=== PATIENT | male | born 1975 | race Caucasian/White ===

== ENCOUNTER 2016-08-01 13:10 | Emergency (ER) | payer MEDICAID, OTHER ==
[~2016-08-01 13:10] MED LIST: /QUET10TA OR; LORA2TAB OR; MINI2CAP OR; NICO21DI4 TD; SERO200T OR; TRAZ50TA OR
[2016-08-01] MEDS ORDERED: NORCO, ANEXSIA 5/325MG TABLET (HYDROcodone/ACETAMINOPHEN) As Ordered ONE (13:37)
[2016-08-01] MEDS ORDERED: AMOXICILLIN 250 MG CAP As Ordered ONE (13:37)
--- NOTE | 2016-08-01 13:44 | EDDOCDS ---
Nurse's Notes [facility] Name: Gallo Nicole Age: 41 yrs Sex: Male : 1975 Arrival Date: 08/01/2016 Time: 13:10 Bed TR3 Private MD: Pro Camarena Diagnosis: Atypical facial pain-dental abscess Presentation: 08/01 13:14 Presenting complaint: Patient states: right upper jaw pain and swelling began jjr yesterday. Adult Sepsis Screening: The patient does not have new or worsening altered mentation. Patient's respiratory rate is less than 22. Systolic blood pressure is greater than 100. Patient has a qSOFA score of 0- Negative Sepsis Screen. Suicide/Homicide risk assessment- the patient denies having any suicidal and/or homicidal ideations and does not present with any other emotional, behavioral or mental health complaints. Status: Patient is not a travel service consultant or dependent. Transition of care: patient was not received from another setting of care. 13:14 Acuity: JULEE Level 4 jjr 13:14 Method Of Arrival: Walkin/Carried/Asstd jjr Triage Assessment: 13:15 General: Appears in no apparent distress. Pain: Location: right jaw. HIV screening NA jjr for this visit Offered previously. EENT: Reports pain in right jaw. Historical: - Allergies: no known allergies; - Home Meds: 1. ibuprofen 800 mg Oral tab (Last dose: 08/01/2016 10:00) - PMHx: none; - PSHx: Hernia repair; - Social history: Smoking status: Patient uses tobacco products, current every day smoker. No barriers to communication noted, The patient speaks fluent Kazakh. - : The pt / caregiver states he / she is not on anticoagulants. Home medication list is obtained from the patient. - Exposure Risk Screening:: None identified. Screenin:42 Screening information is obtained from the patient. Fall risk: No risks identified. jjr Assistance ADL's: requires no assistance with activities of daily living. Abuse/DV Screen: The patient / caregiver reports he/she is: not in a situation that causes fear, pain or injury. Nutritional screening: No deficits noted. Advance Directives: There is no active DNR order. home support is adequate. Assessment: 13:41 General: Appears in no apparent distress, well nourished, well groomed, Behavior is jjr appropriate for age. Pain: Location: right jaw. Respiratory: No deficits noted. Derm: Swollen area noted on right jaw. Vital Signs: 13:11 BP 117 / 70; Pulse 94; Resp 18; Temp 96.9(O); Pulse Ox 97% on R/A; Weight 74.84 kg (R); elp Height 5 ft. 10 in. (177.80 cm) (R); Pain 8/10; 13:11 Body Mass Index 23.67 (74.84 kg, 177.80 cm) el Vitals: 13:11 Log In Time: August 01, 2016 at 13:09. elp ED Course: 13:11 Patient visited by Leela Palma PCA. elp 13:11 Pro Camarena MD is Private Physician. elp 13:11 Patient moved to Waiting elp 13:12 Patient moved to Pre RCE elp 13:14 Triage Initiated jjr 13:27 Patient moved to Triage 1 ct3 13:30 [facility] cc[facility] 13:30 Tiffani Camarillo MD is Attending Physician. cc10 13:30 Patient visited by Jaylon Restrepo PA-C. cc10 13:30 Patient visited by Jaylon Restrepo PA-C. cc10 13:34 Gian Contreras is Referral Physician. cc10 13:41 Patient moved to TR3 jjr 13:42 No IV's were initiated during this patient's visit. No procedures done that require jjr assistance. 13:43 Patient visited by Brittanie Begum RN. jjr 13:43 The patient / caregiver is instructed regarding the plan of care and ED course. jjr Administered Medications: 13:41 Drug: Amoxicillin 500 mg [amoxicillin 250 mg capsule (2 caps)] Route: PO; jjr 13:41 Drug: HYDROcodone-acetaminophen 2 tabs [hydrocodone 5 mg-acetaminophen 325 mg tablet (2 jjr tabs)] Route: PO; Order Results: There are currently no results for this order. Outcome: 13:35 Discharge ordered by Provider. cc10 13:42 Discharge Assessment: patient administered narcotics - yes. Pt provided with safe jjr discharge. The following High Risk Discharge criteria are identified: None. Discharged to home ambulatory. Condition: stable. Discharge instructions given to patient, Instructed on discharge instructions, follow up and referral plans. medication usage, Demonstrated understanding of instructions, medications, Prescriptions given X 3. No special radiology studies were completed. Property sent home with patient. 13:43 Patient left the ED. alis Signatures: Brittanie Begum RN RN Susie Holcomb, STOPPERER ASSEMBLER STOPPERER ASSEMBLER ct3 Leela Palma, STOPPERER ASSEMBLER STOPPERER ASSEMBLER elp Jaylon Restrepo, PAStephyC PAStephyC cc10 Corrections: (The following items were deleted from the chart) 13:12 13:11 Pulse 94bpm; Resp 18bpm; Pulse Ox 97% RA; Temp 96.9F Oral; 74.84 kg Reported; elp Height 5 ft. 10 in. Reported; BMI: 23.6; Pain 8/10; elp MTDD
--- NOTE | 2016-08-01 13:44 | EDDOCDS ---
Physician Documentation [facility] Name: Gallo Nicole Age: 41 yrs Sex: Male : 1975 Arrival Date: 08/01/2016 Time: 13:10 Bed TR3 Private MD: Pro Camarena Disposition: 08/01/16 13:35 Discharged to Home/Self Care. Impression: Atypical facial pain - dental abscess. - Condition is Stable. - Discharge Instructions: Dental Pain. - Prescriptions for Amoxicillin 500 mg Oral Capsule - take 1 capsule by ORAL route every 8 hours for 10 days; 30 tablet. Naprosyn 500 mg Oral Tablet - take 1 tablet by ORAL route 2 times per day take with food; 30 tablet. Hydrocodone- Acetaminophen 5-325 mg Oral Tablet - take 1 tablet by ORAL route every 6 hours As needed MDD: 4 tabs; 16 tablet. - Medication Reconciliation, Local Pharmacy Hours form. - Follow up: Your, Dentist; When: Call to arrange an appointment; Reason: Wound/Symptom Recheck, Recheck today's complaints, Worsening of conditions, Continuance of care. - Problem is an acute exacerbation. - Symptoms are unchanged. Historical: - Allergies: no known allergies; - Home Meds: 1. ibuprofen 800 mg Oral tab (Last dose: 08/01/2016 10:00) - PMHx: none; - PSHx: Hernia repair; - Social history: Smoking status: Patient uses tobacco products, current every day smoker. No barriers to communication noted, The patient speaks fluent Turkish. - : The pt / caregiver states he / she is not on anticoagulants. Home medication list is obtained from the patient. - Exposure Risk Screening:: None identified. Vital Signs: 08/01 13:11 BP 117 / 70; Pulse 94; Resp 18; Temp 96.9(O); Pulse Ox 97% on R/A; Weight 74.84 kg / elp 164.99 lbs (R); Height 5 ft. 10 in. (177.80 cm) (R); Pain 8/10; 13:11 Body Mass Index 23.67 (74.84 kg, 177.80 cm) elp MDM: 13:34 Amoxicillin 500 mg PO once ordered. cc10 13:34 HYDROcodone-acetaminophen 5 mg-325 mg 2 tabs PO once ordered. cc10 Administered Medications: 13:41 Drug: Amoxicillin 500 mg [amoxicillin 250 mg capsule (2 caps)] Route: PO; jjr 13:41 Drug: HYDROcodone-acetaminophen 2 tabs [hydrocodone 5 mg-acetaminophen 325 mg tablet (2 jjr tabs)] Route: PO; Signatures: Brittanie Begum, RN RN jjr Jaylon Restrepo PA-C PA-C cc10 MTDD
--- NOTE | 2016-08-03 14:44 | EDDOCDS ---
Nurse's Notes [facility] Name: Gallo Nicole Age: 41 yrs Sex: Male : 1975 Arrival Date: 08/01/2016 Time: 13:10 Bed TR3 Private MD: Pro Camarena Diagnosis: Atypical facial pain-dental abscess Presentation: 08/01 13:14 Presenting complaint: Patient states: right upper jaw pain and swelling began jjr yesterday. Adult Sepsis Screening: The patient does not have new or worsening altered mentation. Patient's respiratory rate is less than 22. Systolic blood pressure is greater than 100. Patient has a qSOFA score of 0- Negative Sepsis Screen. Suicide/Homicide risk assessment- the patient denies having any suicidal and/or homicidal ideations and does not present with any other emotional, behavioral or mental health complaints. Status: Patient is not a auto servicer or dependent. Transition of care: patient was not received from another setting of care. 13:14 Acuity: JULEE Level 4 jjr 13:14 Method Of Arrival: Walkin/Carried/Asstd jjr Triage Assessment: 13:15 General: Appears in no apparent distress. Pain: Location: right jaw. HIV screening NA jjr for this visit Offered previously. EENT: Reports pain in right jaw. Historical: - Allergies: no known allergies; - Home Meds: 1. ibuprofen 800 mg Oral tab (Last dose: 08/01/2016 10:00) - PMHx: none; - PSHx: Hernia repair; - Social history: Smoking status: Patient uses tobacco products, current every day smoker. No barriers to communication noted, The patient speaks fluent Yi. - : The pt / caregiver states he / she is not on anticoagulants. Home medication list is obtained from the patient. - Exposure Risk Screening:: None identified. Screenin:42 Screening information is obtained from the patient. Fall risk: No risks identified. jjr Assistance ADL's: requires no assistance with activities of daily living. Abuse/DV Screen: The patient / caregiver reports he/she is: not in a situation that causes fear, pain or injury. Nutritional screening: No deficits noted. Advance Directives: There is no active DNR order. home support is adequate. Assessment: 13:41 General: Appears in no apparent distress, well nourished, well groomed, Behavior is jjr appropriate for age. Pain: Location: right jaw. Respiratory: No deficits noted. Derm: Swollen area noted on right jaw. Vital Signs: 13:11 BP 117 / 70; Pulse 94; Resp 18; Temp 96.9(O); Pulse Ox 97% on R/A; Weight 74.84 kg (R); elp Height 5 ft. 10 in. (177.80 cm) (R); Pain 8/10; 13:11 Body Mass Index 23.67 (74.84 kg, 177.80 cm) el Vitals: 13:11 Log In Time: August 01, 2016 at 13:09. elp ED Course: 13:11 Patient visited by Leela Palma PCA. elp 13:11 Pro Camarena MD is Private Physician. elp 13:11 Patient moved to Waiting elp 13:12 Patient moved to Pre RCE elp 13:14 Triage Initiated jjr 13:27 Patient moved to Triage 1 ct3 13:30 [facility]lon Restrepo [facility] cc[facility] 13:30 Tiffani Camarillo MD is Attending Physician. cc10 13:30 Patient visited by Jaylon Restrepo PA-C. cc10 13:30 Patient visited by Jaylon Restrepo PA-C. cc10 13:34 Gian Contreras is Referral Physician. cc10 13:41 Patient moved to TR3 jjr 13:42 No IV's were initiated during this patient's visit. No procedures done that require jjr assistance. 13:43 Patient visited by Brittanie Begum RN. jjr 13:43 The patient / caregiver is instructed regarding the plan of care and ED course. jjr 14:19 [place] Payment Agreement was scanned into [employer] and attached to record. lg 16:55 T-Sheet-- Draft Copy was scanned into [employer] and attached to record. klr Administered Medications: 13:41 Drug: Amoxicillin 500 mg [amoxicillin 250 mg capsule (2 caps)] Route: PO; jjr 13:41 Drug: HYDROcodone-acetaminophen 2 tabs [hydrocodone 5 mg-acetaminophen 325 mg tablet (2 jjr tabs)] Route: PO; Order Results: There are currently no results for this order. Outcome: 13:35 Discharge ordered by Provider. cc10 13:42 Discharge Assessment: patient administered narcotics - yes. Pt provided with safe jjr discharge. The following High Risk Discharge criteria are identified: None. Discharged to home ambulatory. Condition: stable. Discharge instructions given to patient, Instructed on discharge instructions, follow up and referral plans. medication usage, Demonstrated understanding of instructions, medications, Prescriptions given X 3. No special radiology studies were completed. Property sent home with patient. 13:43 Patient left the ED. jjr Signatures: José Luis Goldsmith, Reg Reg lg Brittanie Begum, RN RN jjr Susie Ash, PEAT SHREDDER TENDER PEAT SHREDDER TENDER ct3 Patchen, Leela, PEAT SHREDDER TENDER PEAT SHREDDER TENDER elp Jaylon Restrepo, PAStephyC PA-C cc10 Edith Phan Corrections: (The following items were deleted from the chart) 13:12 13:11 Pulse 94bpm; Resp 18bpm; Pulse Ox 97% RA; Temp 96.9F Oral; 74.84 kg Reported; elp Height 5 ft. 10 in. Reported; BMI: 23.6; Pain 8/10; elp Chart Complete MTDD
--- NOTE | 2016-08-03 14:44 | EDDOCDS ---
Physician Documentation [facility] Name: Gallo Nicole Age: 41 yrs Sex: Male : 1975 Arrival Date: 08/01/2016 Time: 13:10 Bed TR3 Private MD: Pro Camarena Disposition: 08/01/16 13:35 Discharged to Home/Self Care. Impression: Atypical facial pain - dental abscess. - Condition is Stable. - Discharge Instructions: Dental Pain. - Prescriptions for Amoxicillin 500 mg Oral Capsule - take 1 capsule by ORAL route every 8 hours for 10 days; 30 tablet. Naprosyn 500 mg Oral Tablet - take 1 tablet by ORAL route 2 times per day take with food; 30 tablet. Hydrocodone- Acetaminophen 5-325 mg Oral Tablet - take 1 tablet by ORAL route every 6 hours As needed MDD: 4 tabs; 16 tablet. - Medication Reconciliation, Local Pharmacy Hours form. - Follow up: Your, Dentist; When: Call to arrange an appointment; Reason: Wound/Symptom Recheck, Recheck today's complaints, Worsening of conditions, Continuance of care. - Problem is an acute exacerbation. - Symptoms are unchanged. Historical: - Allergies: no known allergies; - Home Meds: 1. ibuprofen 800 mg Oral tab (Last dose: 08/01/2016 10:00) - PMHx: none; - PSHx: Hernia repair; - Social history: Smoking status: Patient uses tobacco products, current every day smoker. No barriers to communication noted, The patient speaks fluent Mongolian. - : The pt / caregiver states he / she is not on anticoagulants. Home medication list is obtained from the patient. - Exposure Risk Screening:: None identified. Vital Signs: 08/01 13:11 BP 117 / 70; Pulse 94; Resp 18; Temp 96.9(O); Pulse Ox 97% on R/A; Weight 74.84 kg / elp 164.99 lbs (R); Height 5 ft. 10 in. (177.80 cm) (R); Pain 8/10; 13:11 Body Mass Index 23.67 (74.84 kg, 177.80 cm) elp MDM: 13:34 Amoxicillin 500 mg PO once ordered. cc10 13:34 HYDROcodone-acetaminophen 5 mg-325 mg 2 tabs PO once ordered. cc10 14:19 [place] Payment Agreement was scanned into [employer] and attached to record. lg 16:55 T-Sheet-- Draft Copy was scanned into [employer] and attached to record. klr Administered Medications: 13:41 Drug: Amoxicillin 500 mg [amoxicillin 250 mg capsule (2 caps)] Route: PO; jjr 13:41 Drug: HYDROcodone-acetaminophen 2 tabs [hydrocodone 5 mg-acetaminophen 325 mg tablet (2 jjr tabs)] Route: PO; Signatures: José Luis Goldsmith, Alexandre Schroeder Brittanie Begum RN RN jjr Jaylon Restrepo, SUMEETC PA-C cc10 Edith Phan The chart was reviewed and I authenticate all verbal orders and agree with the evaluation and treatment provided.Attachments: 14:19 [facility] Payment Agreement lg 16:55 T-Sheet-- Draft Copy klr Chart Complete MTDD
--- NOTE | 2016-08-03 14:44 | EDDOCDS ---
Physician Documentation [facility] Name: Gallo Nicole Age: 41 yrs Sex: Male : 1975 Arrival Date: 08/01/2016 Time: 13:10 Bed TR3 Private MD: Pro Camarena Disposition: 08/01/16 13:35 Discharged to Home/Self Care. Impression: Atypical facial pain - dental abscess. - Condition is Stable. - Discharge Instructions: Dental Pain. - Prescriptions for Amoxicillin 500 mg Oral Capsule - take 1 capsule by ORAL route every 8 hours for 10 days; 30 tablet. Naprosyn 500 mg Oral Tablet - take 1 tablet by ORAL route 2 times per day take with food; 30 tablet. Hydrocodone- Acetaminophen 5-325 mg Oral Tablet - take 1 tablet by ORAL route every 6 hours As needed MDD: 4 tabs; 16 tablet. - Medication Reconciliation, Local Pharmacy Hours form. - Follow up: Your, Dentist; When: Call to arrange an appointment; Reason: Wound/Symptom Recheck, Recheck today's complaints, Worsening of conditions, Continuance of care. - Problem is an acute exacerbation. - Symptoms are unchanged. Historical: - Allergies: no known allergies; - Home Meds: 1. ibuprofen 800 mg Oral tab (Last dose: 08/01/2016 10:00) - PMHx: none; - PSHx: Hernia repair; - Social history: Smoking status: Patient uses tobacco products, current every day smoker. No barriers to communication noted, The patient speaks fluent Macedonian. - : The pt / caregiver states he / she is not on anticoagulants. Home medication list is obtained from the patient. - Exposure Risk Screening:: None identified. Vital Signs: 08/01 13:11 BP 117 / 70; Pulse 94; Resp 18; Temp 96.9(O); Pulse Ox 97% on R/A; Weight 74.84 kg / elp 164.99 lbs (R); Height 5 ft. 10 in. (177.80 cm) (R); Pain 8/10; 13:11 Body Mass Index 23.67 (74.84 kg, 177.80 cm) elp MDM: 13:34 Amoxicillin 500 mg PO once ordered. cc10 13:34 HYDROcodone-acetaminophen 5 mg-325 mg 2 tabs PO once ordered. cc10 14:19 [facility] [place] Agreement was scanned into [employer] and attached to record. lg 16:55 T-Sheet-- Draft Copy was scanned into [employer] and attached to record. klr Administered Medications: 13:41 Drug: Amoxicillin 500 mg [amoxicillin 250 mg capsule (2 caps)] Route: PO; jjr 13:41 Drug: HYDROcodone-acetaminophen 2 tabs [hydrocodone 5 mg-acetaminophen 325 mg tablet (2 jjr tabs)] Route: PO; Signatures: José Luis Goldsmith, Alexandre Schroeder Brittanie Begum RN RN jjr Jaylon Restrepo, SUMEETC PA-C cc10 Edith Phan The chart was reviewed and I authenticate all verbal orders and agree with the evaluation and treatment provided.Attachments: 14:19 [facility] Payment Agreement lg 16:55 T-Sheet-- Draft Copy klr Chart Complete MTDD
== END 2016-08-01 13:43 | disposition home or self-care (01) ==
LOC: M ED 13:10
DX: K04.7 Periapical abscess without sinus (principal); G50.1 Atypical facial pain; F17.200 Nicotine dependence, unspecified, uncomplicated

== ENCOUNTER 2016-12-06 00:15 | Emergency (ER) | payer MEDICAID, OTHER ==
[2016-12-06 00:28] VITALS: BP 153/93
== END 2016-12-06 00:44 | disposition home or self-care (01) ==
LOC: M ED 00:42
DX: F10.120 Alcohol abuse with intoxication, uncomplicated (principal); F91.9 Conduct disorder, unspecified; F43.29 Adjustment disorder with other symptoms; F17.200 Nicotine dependence, unspecified, uncomplicated

== ENCOUNTER 2016-12-06 17:31 | Emergency (ER) | payer OTHER ==
[~2016-12-06] VITALS: Ht 175.3 cm; Wt 72.6 kg
[2016-12-06 17:32] VITALS: BP 133/77
== END 2016-12-06 18:31 | disposition left against medical advice (07) ==
LOC: M ED 18:26
DX: S69.90XA Unspecified injury of unspecified wrist, hand and finger(s), initial encounter (principal); Z53.21 Procedure and treatment not carried out due to patient leaving prior to being seen by health care provider

== ENCOUNTER 2017-02-11 08:11 | Emergency (ER) | payer OTHER ==
[2017-02-11 08:27] VITALS: BP 136/80
[2017-02-11] MEDS ORDERED: FLUORESCEIN OPHTH 1 MG STRIP As Ordered ONE (09:08)
[2017-02-11] MEDS ORDERED: PROPARACAINE 0.5% OPHTH SOL 15ML OU ONE (09:15)
[2017-02-11] MEDS ORDERED: OFLO0.3D57 OD (09:27)
[2017-02-11] MEDS ORDERED: ADACEL/BOOSTRIX VACCINE (DIPHTH/PERTUSS/ACELL/TETANUS)0.5ML SYR (90715) IM ONE (09:30)
== END 2017-02-11 10:01 | disposition home or self-care (01) ==
LOC: M ED 08:11
DX: S05.02XA Injury of conjunctiva and corneal abrasion without foreign body, left eye, initial encounter (principal); X58.XXXA Exposure to other specified factors, initial encounter; Y92.9 Unspecified place or not applicable; Y99.9 Unspecified external cause status; Y93.9 Activity, unspecified; Z23 Encounter for immunization

== ENCOUNTER 2017-02-16 08:00 | Emergency (ER) | payer OTHER ==
[~2017-02-16] VITALS: Ht 175.3 cm; Wt 77.2 kg
[~2017-02-16 08:00] MED LIST changes: +OFLO0.3D57 OD
[2017-02-16] MEDS: NORCO, ANEXSIA 5/325MG TABLET (HYDROcodone/ACETAMINOPHEN) PO ONE (10:15)
[2017-02-16] MEDS: FLUORESCEIN OPHTH 1 MG STRIP OS ONE (10:15)
[2017-02-16] MEDS ORDERED: DICL75TA PO (10:31)
[2017-02-16 10:38] VITALS: BP 116/70
== END 2017-02-16 10:39 | disposition home or self-care (01) ==
LOC: M ED 08:00
DX: S05.02XA Injury of conjunctiva and corneal abrasion without foreign body, left eye, initial encounter (principal); R51 Headache; G89.29 Other chronic pain; F17.210 Nicotine dependence, cigarettes, uncomplicated; W22.8XXA Striking against or struck by other objects, initial encounter; Y92.89 Other specified places as the place of occurrence of the external cause; Y99.9 Unspecified external cause status; Y93.9 Activity, unspecified

== ENCOUNTER 2017-07-16 12:54 | Emergency (ER) | payer OTHER ==
[2017-07-16] MEDS: ONDANSETRON 4MG/2ML VIAL (J2405) IV (13:35)
[2017-07-16] MEDS: KETOROLAC 30 MG/ML VIAL (J1885) IV (13:35)
[2017-07-16] MEDS: NS 1,000 ML IV (13:35)
[2017-07-16 13:40] LABS: BASO % 0.5 % (0.0-1.0); EOS # 0.1 10^3/uL (0.0-0.50); EOS % 1.3 % (0.0-3.0); HEMOGLOBIN 14.4 g/dl (14.0-18.0); IMMATURE GRANULOCYTE % 0.5 % (0-0); LYMPH # 1.9 10^3/uL (1.5-4.5); LYMPH % 30.2 % (24.0-44.0); MEAN CORPUSCULAR HEMOGLOBIN 32.6 pg (27.0-33.0); MEAN CORPUSCULAR HGB CONC 35.1 g/dl (32.0-36.5); MEAN CORPUSCULAR VOLUME 92.8 fl (80.0-96.0); MONO # 0.7 10^3/uL (0.0-0.8); MONO % 11.7 % (0.0-5.0); NEUTROPHILS # 3.5 10^3/uL (1.8-7.7); NEUTROPHILS % 55.8 % (36.0-66.0); PLATELET COUNT, AUTOMATED 224 10^3/uL (150-450); RED BLOOD COUNT 4.42 10^6/uL (4.30-6.10); RED CELL DISTRIBUTION WIDTH 12.1 % (11.5-14.5); WHITE BLOOD COUNT 6.3 10^3/uL (4.0-10.0)
[2017-07-16 13:43] LABS: KETONE, URINE AUTO RFX NEGATIVE (NEGATIVE); LEUKOCYTE ESTERASE UR AUTO RFX NEGATIVE (NEGATIVE); NITRITE, URINE AUTO RFX NEGATIVE (NEGATIVE); RBC, URINE AUTO RFX 1 /HPF (0-3); SPECIFIC GRAVITY UR AUTO RFX 1.003 (1.002-1.035); SQUAM EPITHELIAL CELL UR AURFX 0 /HPF (0-6); WBC, URINE AUTO RFX 0 /HPF (0-3)
[2017-07-16 13:58] LABS: ALBUMIN 4.4 GM/DL (3.2-5.2); ALBUMIN/GLOBULIN RATIO 1.33 (1.00-1.93); ALKALINE PHOSPHATASE 61 U/L (45-117); ALT/SGPT 19 U/L (12-78); ANION GAP 7 MEQ/L (8-16); AST/SGOT 21 U/L (7-37); BILIRUBIN,DIRECT 0.2 MG/DL (0.0-0.2); BILIRUBIN,TOTAL 0.9 MG/DL (0.2-1.0); BLOOD UREA NITROGEN 10 MG/DL (7-18); CALCIUM LEVEL 9.2 MG/DL (8.5-10.1); CARBON DIOXIDE LEVEL 27 MEQ/L (21-32); CHLORIDE LEVEL 103 MEQ/L (98-107); CREATININE FOR GFR 0.99 MG/DL (0.70-1.30); GLOMERULAR FILTRATION RATE > 60.0 (>60); GLUCOSE, FASTING 90 MG/DL (70-105); POTASSIUM SERUM 4.2 MEQ/L (3.5-5.1); SODIUM LEVEL 137 MEQ/L (136-145); TOTAL PROTEIN 7.7 GM/DL (6.4-8.2)
[2017-07-16] MEDS: METHOCARBAMOL 500 MG TAB PO (15:03)
[2017-07-16] MEDS: NORCO, ANEXSIA 5/325MG TABLET (HYDROcodone/ACETAMINOPHEN) PO (15:03)
== END 2017-07-16 15:08 | disposition home or self-care (01) ==
LOC: M ED 12:54
DX: S39.001A Unspecified injury of muscle, fascia and tendon of abdomen, initial encounter (principal); X58.XXXA Exposure to other specified factors, initial encounter; Y92.89 Other specified places as the place of occurrence of the external cause; Y93.89 Activity, other specified; Y99.8 Other external cause status; N20.0 Calculus of kidney; N18.9 Chronic kidney disease, unspecified; F17.210 Nicotine dependence, cigarettes, uncomplicated; Z87.442 Personal history of urinary calculi; Z98.890 Other specified postprocedural states
CPT/HCPCS: J2405

== ENCOUNTER 2021-04-21 10:05 | Emergency (ER) | payer MEDICAID, OTHER ==
[~2021-04-21] VITALS: Ht 175.3 cm; Wt 75.4 kg
[~2021-04-21 10:05] MED LIST changes: -/QUET10TA OR; +AUGM875T28 PO; +DICL75TA PO; +HYDR-3715 PO; +IBUP80TA PO; +ROBA500T PO; +SERO1TAB OR
[2021-04-21] MEDS ORDERED: NS 1,000 ML IV ONE (12:45)
[2021-04-21] MEDS ORDERED: ACETAMINOPHEN 500 MG TAB PO ONE (12:45)
[2021-04-21 12:51] LABS: BASO % 0.4 % (0.0-1.0); EOS # 0.1 10^3/uL (0.0-0.5); EOS % 0.9 % (0.0-3.0); HEMATOCRIT 42.9 % (42.0-52.0); HEMOGLOBIN 14.4 g/dl (13.5-17.5); LYMPH # 1.5 10^3/uL (1.5-5.0); LYMPH % 18.6 % (24.0-44.0); MEAN CORPUSCULAR HEMOGLOBIN 31.9 pg (27.0-33.0); MEAN CORPUSCULAR HGB CONC 33.6 g/dl (32.0-36.5); MEAN CORPUSCULAR VOLUME 95.1 fl (80.0-96.0); MONO # 0.6 10^3/uL (0.0-0.8); MONO % 6.9 % (2.0-8.0); NEUTROPHILS # 5.8 10^3/uL (1.5-8.5); NEUTROPHILS % 72.9 % (36.0-66.0); PLATELET COUNT, AUTOMATED 283 10^3/uL (150-450); RED BLOOD COUNT 4.51 10^6/uL (4.30-6.10)
[2021-04-21 13:17] LABS: INR 0.9; PROTHROMBIN TIME 12.6 SECONDS (12.7-14.5)
[2021-04-21 13:18] LABS: PARTIAL THROMBOPLASTIN TIME 28.8 SECONDS (25.9-37.0)
[2021-04-21] MEDS: GASTROGRAFIN SOLUTION 30ML PO SCH ×2 (13:22→14:16)
[2021-04-21 13:24] LABS: ALBUMIN 3.9 GM/DL (3.2-5.2); ALT/SGPT 16 U/L (12-78); BILIRUBIN,DIRECT 0.1 MG/DL (0.0-0.2); BILIRUBIN,TOTAL 0.3 MG/DL (0.2-1.0); C REACTIVE PROTEIN QUANTITATIV < 0.30 MG/DL (0.00-0.30); LIPASE 65 U/L (73-393); TOTAL PROTEIN 7.4 GM/DL (6.4-8.2)
[2021-04-21 13:34] LABS: ERYTHROCYTE SEDIMENTATION RATE 9 mm/hr (0-15)
[2021-04-21] MEDS ORDERED: ISOVUE-370 76% 100ML VIAL As Ordered ONE (14:51)
--- NOTE | 2021-04-21 15:37 | REP ---
INDICATION: hematochezia, davide blood, abd pain, r/o UC. COMPARISON: 07/16/2017 the only prior noncontrast enhanced stone protocol CT TECHNIQUE: Standard helical technique after the intravenous administration of 100 cc Isovue 370 and oral bowel preparatory contrast administration FINDINGS: Bilateral dependent atelectatic changes are seen in lung bases. The liver, gallbladder, spleen, pancreas, adrenal glands, and kidneys are within normal limits. The abdominal aorta and para-aortic regions are within normal limits. Multiple poorly contrast opacified small bowel loops have thickened acuna. Moderate stool is seen throughout the colon. The colon is noncontrast opacified. There is no evidence of pericolonic fatty infiltration. There is no evidence of free fluid or free air. There is no evidence of a mass or adenopathy. Urinary bladder is distended. Bone window technique throughout the examination shows spinal degenerative changes. IMPRESSION: 1. Multiple small bowel loops with thickened acuna as described above suggesting enteritis. 2. Urinary bladder is distended. 3. Other findings as described above. <Electronically signed by Jake Parks > 04/21/21 0402
[2021-04-21] MEDS ORDERED: PRED20TA PO (16:07)
[2021-04-21 16:08] VITALS: BP 114/76
== END 2021-04-21 16:10 | disposition home or self-care (01) ==
LOC: M ED 10:05
DX: K62.5 Hemorrhage of anus and rectum (principal); R10.84 Generalized abdominal pain
CPT/HCPCS: 36415; 74177; 80047; 80076; 83690; 85025; 85610; 85652; 85730; 86140; 86850; 86900; 86901; 96360; 96361; 99284; Q9963; Q9967

== ENCOUNTER 2021-08-21 10:34 | Emergency (ER) | payer OTHER, MEDICAID ==
[~2021-08-21] VITALS: Ht 175.3 cm; Wt 69.4 kg
[~2021-08-21 10:34] MED LIST changes: +INCR1INH INH; +PRED20TA PO
[2021-08-21 10:35] VITALS: BP 140/75
[2021-08-21] MEDS ORDERED: IBUPROFEN 800 MG TAB PO ONE (12:15)
== END 2021-08-21 12:29 | disposition home or self-care (01) ==
LOC: M ED 10:34
DX: S83.91XA Sprain of unspecified site of right knee, initial encounter (principal); X50.0XXA Overexertion from strenuous movement or load, initial encounter; Y92.009 Unspecified place in unspecified non-institutional (private) residence as the place of occurrence of the external cause; Y93.K1 Activity, walking an animal; Y99.9 Unspecified external cause status; F17.210 Nicotine dependence, cigarettes, uncomplicated

== ENCOUNTER 2021-09-01 11:30 | Emergency (ER) | payer OTHER, MEDICAID ==
[~2021-09-01] VITALS: Ht 175.3 cm; Wt 72.7 kg
[2021-09-01] MEDS ORDERED: AMOX875T2 PO (13:47)
[2021-09-01 13:56] VITALS: BP 144/79
== END 2021-09-01 14:00 | disposition left against medical advice (07) ==
LOC: M ED 11:30
DX: K04.7 Periapical abscess without sinus (principal); L03.211 Cellulitis of face; F17.200 Nicotine dependence, unspecified, uncomplicated; F11.10 Opioid abuse, uncomplicated; Z53.21 Procedure and treatment not carried out due to patient leaving prior to being seen by health care provider

== ENCOUNTER → 2022-02-11 | Outpatient (REF) | payer OTHER ==
[~2022-02-11] MED LIST changes: +AMOX875T2 PO
[2022-02-11 21:22] LABS: GC DNA AMPLIFICATION NEGATIVE (NEGATIVE)
== END ==
LOC: M LAB REF 19:39
PROVIDERS: ATTEND Physician Assistant
DX: Z20.2 Contact with and (suspected) exposure to infections with a predominantly sexual mode of transmission (principal)

== ENCOUNTER 2022-03-14 10:14 | Emergency (ER) | payer OTHER ==
[~2022-03-14] VITALS: Ht 172.7 cm; Wt 70.0 kg
[2022-03-14] MEDS ORDERED: IBUP200C25 PO (10:33)
[2022-03-14] MEDS ORDERED: HYDR-3713 PO (12:13)
[2022-03-14 12:14] VITALS: BP 120/77
== END 2022-03-14 12:25 | disposition home or self-care (01) ==
LOC: M ED 10:14 → EDBD 10:14 → M ED 12:25
DX: S06.0X0A Concussion without loss of consciousness, initial encounter (principal); S22.32XA Fracture of one rib, left side, initial encounter for closed fracture; W11.XXXA Fall on and from ladder, initial encounter; Y92.89 Other specified places as the place of occurrence of the external cause; Y99.0 Civilian activity done for income or pay; F25.8 Other schizoaffective disorders; M51.36 Other intervertebral disc degeneration, lumbar region; F10.11 Alcohol abuse, in remission; F17.200 Nicotine dependence, unspecified, uncomplicated

== ENCOUNTER 2023-01-18 07:24 | Emergency (ER) | payer MEDICAID, OTHER ==
[~2023-01-18] VITALS: Ht 170.2 cm; Wt 72.5 kg
[~2023-01-18 07:24] MED LIST changes: +HYDR-3713 PO; +IBUP200C25 PO
[2023-01-18 07:25] VITALS: BP 130/74; TEMP 97; O2SAT 97
[2023-01-18] MEDS ORDERED: IBUPROFEN 800 MG TAB PO ONE (08:10)
== END 2023-01-18 09:51 | disposition home or self-care (01) ==
LOC: M ED 07:24
DX: M54.9 Dorsalgia, unspecified (principal); M25.561 Pain in right knee; F17.200 Nicotine dependence, unspecified, uncomplicated